=== PATIENT | male | born 1970 | race African-American/Black ===

== ENCOUNTER 2019-01-20 12:16 | Emergency (ER) | payer MEDICARE ==
[~2019-01-20] VITALS: Ht 172.7 cm; Wt 86.0 kg
[2019-01-20 12:30] VITALS: BP 137/78
== END 2019-01-20 16:53 | disposition left against medical advice (07) ==
LOC: ER 12:16
DX: Z53.21 Procedure and treatment not carried out due to patient leaving prior to being seen by health care provider (principal)